=== PATIENT | male | born 1950 | race Caucasian/White ===

== ENCOUNTER → 2016-06-28 | Outpatient (CLI) | payer MEDICARE | LOC: KOH-I 12:49 | DX: F17.210 Nicotine dependence, cigarettes, uncomplicated (principal) | CPT/HCPCS: G0297 ==

== ENCOUNTER → 2021-04-21 | Outpatient (CLI) | payer MEDICARE ==
[~2021-04-21] MED LIST: ACIPHEX20 MG PO; ASPIRIN CHEWABL81 MG PO; AUGMENTIN 875-1 EACH PO; BETAPACE80 MG PO; ELIQUIS5 MG PO; FLAGYL500 MG PO; HYDROCHLOROTHIA25 MG PO; KLONOPIN1 MG PO; LEVAQUIN500 MG PO; LOPRESSOR50 MG PO; NICOTINE PATCH1 EAC5 TD; NITROSTAT0.4 MG SL; PRAMIPEXOLE DI0.5 MG PO; PROAIR HFA8.5 GM INH; SPIRIVA RESPIMAT4 GM INH; THERAGRAN M TAB1 EA PO; TOPROL XL25 MG PO; TOPROL XL50 MG PO; TYLENOL 325MG325 MG PO; VICODIN ES 7.51 EACH PO; XANAX0.5 MG PO; ZANAFLEX4 MG PO; ZESTRIL 40 MG T40 MG PO
== END ==
LOC: HEART 5 08:50
DX: R07.9 Chest pain, unspecified (principal); I51.9 Heart disease, unspecified
CPT/HCPCS: 93306